=== PATIENT | female | born 1995 | race Caucasian/White ===

== ENCOUNTER 2020-04-27 11:10 | Emergency (ER) | payer OTHER, SELFPAY ==
--- NOTE | 2020-04-27 13:04 | RAD ---
CHEST 1 VIEW: Date: 04/27/2020 HISTORY: Cough. COMPARISON: 04/24/2013. FINDINGS: Heart size is normal. The lungs are clear. There is some linear artifact overlying the right chest ve rtically. IMPRESSION: No significant acute intrathoracic disease. No evidence for pneumonia. Stable from prior study. POS: RRE
[2020-04-28 14:24] LABS: SARS-CoV-2 MS2 Positive; SARS-CoV-2 N Gene Negative; SARS-CoV-2 S Gene Negative; SARS-CoV-2 by NAA Not Detected (NotDetected); SARS-CoV-2 orf1ab Negative
== END 2020-04-27 12:39 | disposition home or self-care (01) ==
LOC: MADERS 11:10
DX: J20.9 Acute bronchitis, unspecified (principal); B97.29 Other coronavirus as the cause of diseases classified elsewhere; F41.9 Anxiety disorder, unspecified; F31.9 Bipolar disorder, unspecified; F17.210 Nicotine dependence, cigarettes, uncomplicated; Z20.828 Contact with and (suspected) exposure to other viral communicable diseases
CPT/HCPCS: 71045; 87635; U0003

== ENCOUNTER 2020-12-11 07:24 | Emergency (ER) | payer SELFPAY ==
[2020-12-11] MEDS ORDERED: Sodium Chloride 0.9% 1,000 ML ONE (07:48)
[2020-12-11 07:59] LABS: #Basophils 0.1 thou/uL (0.0-0.2); #Lymphocytes 1.2 thou/uL (1.20-3.40); #Monocytes 0.8 thou/uL (0.11-0.59); #Neutrophils 8.4 thou/uL (1.40-6.50); %Basophils 0.7 % (0.0-1.0); %Eosinophils 0.4 % (0.0-10.0); %Lymphocytes 11.2 % (21.0-51.0); %Monocytes 7.6 % (0.0-10.0); Hemoglobin 14.9 g/dL (12.0-16.0); Mean Corpuscular HGB CONC 33.9 g/dL (32.0-36.0); Mean Corpuscular Hemoglobin 29.3 pg (27.0-31.0); Mean Corpuscular Volume 86.2 fL (78.0-98.0); Mean Platelet Volume 7.1 fL (7.4-10.4); Platelet Count 222 thou/uL (130-400); RBC Distribution Width 10.9 % (11.5-14.5); Red Blood Cell (RBC) Count 5.11 mill/uL (4.20-5.40); White Blood Cell (WBC) Count 10.5 thou/uL (4.8-10.8)
[2020-12-11 08:11] LABS: ALT (SGPT) 12 U/L (8-55); AST (SGOT) 16 U/L (5-34); Albumin 4.5 g/dL (3.5-5.0); Alkaline Phosphatase 63 U/L (40-110); Anion Gap 12 mmol/L (10-20); BUN (Urea Nitrogen) 12 mg/dL (7.0-18.7); Bilirubin, Total 0.9 mg/dL (0.2-1.2); Calc. Creatinine Clearance 0 mL/min (70-130); Calcium 8.9 mg/dL (7.8-10.44); Carbon Dioxide 27 mmol/L (22-29); Chloride 105 mmol/L (98-107); Globulin 2.8 g/dL (2.4-3.5); Glucose 92 mg/dL (70-105); Potassium 3.6 mmol/L (3.5-5.1); Protein, Total 7.3 g/dL (6.0-8.3); Sodium 140 mmol/L (136-145)
[2020-12-11 08:32] LABS: BHCG - Serum Negative (NEGATIVE); Pregs Control Background? CLEAR/WHITE (CLR/WHITE); Pregs Control Bar Appear? YES (CONTROL BAR)
[2020-12-11 09:01] LABS: Bilirubin Negative (Negative); Blood, Urine Negative (Negative); Clarity Clear (Clear); Glucose, Urine (Dipstick) Negative (Negative); Ketone, Urine Negative (Negative); Leukocyte Small (Negative); Nitrite Negative (Negative); Protein, Urine (Dipstick) Negative (Neg-Trace); RBC/HPF 0-3 HPF (0-3); Urobilinogen 0.2 mg/dL (Less than 2)
[2020-12-11 09:03] LABS: Bacteria/HPF Rare-Few HPF (None Seen)
== END 2020-12-11 09:35 | disposition home or self-care (01) ==
LOC: MADERS 07:24
DX: R55 Syncope and collapse (principal); N39.0 Urinary tract infection, site not specified; E16.2 Hypoglycemia, unspecified; F17.210 Nicotine dependence, cigarettes, uncomplicated; Z79.899 Other long term (current) drug therapy
CPT/HCPCS: 71046; 80053; 81003; 81015; 84703; 85025; 87086; 93005; J7050

== ENCOUNTER 2021-05-30 09:08 | Emergency (ER) | payer OTHER, SELFPAY ==
[2021-05-31 02:13] LABS: SARS-CoV-2 PCR by NAA Not Detected (NotDetected)
== END 2021-05-30 10:11 | disposition home or self-care (01) ==
LOC: MADERS 09:08
DX: O99.511 Diseases of the respiratory system complicating pregnancy, first trimester (principal); J02.9 Acute pharyngitis, unspecified; O99.331 Smoking (tobacco) complicating pregnancy, first trimester; F17.210 Nicotine dependence, cigarettes, uncomplicated; Z3A.10 10 weeks gestation of pregnancy
CPT/HCPCS: 99283; U0003; U0005

== ENCOUNTER 2021-06-05 08:08 | Emergency (ER) | payer OTHER | END 2021-06-05 09:15 | disposition home or self-care (01) | LOC: MADERS 08:08 | DX: O99.511 Diseases of the respiratory system complicating pregnancy, first trimester (principal); J02.9 Acute pharyngitis, unspecified; O99.331 Smoking (tobacco) complicating pregnancy, first trimester; F17.210 Nicotine dependence, cigarettes, uncomplicated | CPT/HCPCS: 87081; 87430; 99283 ==

== ENCOUNTER 2022-07-26 08:16 | Emergency (ER) | payer OTHER ==
[2022-07-26] MEDS ORDERED: Metoclopramide HCl 10 MG/2 ML VIAL ONE (09:13)
[2022-07-26] MEDS ORDERED: Sodium Chloride 0.9% 2,000 ML ONE (09:13)
[2022-07-26 09:24] LABS: #Lymphocytes 0.4 thou/uL (1.20-3.40); #Monocytes 0.4 thou/uL (0.11-0.59); #Neutrophils 11.6 thou/uL (1.40-6.50); %Basophils 0.1 % (0.0-1.0); %Eosinophils 0.1 % (0.0-10.0); %Lymphocytes 3.5 % (21.0-51.0); %Monocytes 3.3 % (0.0-10.0); %Neutrophils 92.9 % (42.0-75.0); Hemoglobin 14.8 g/dL (12.0-16.0); Mean Corpuscular HGB CONC 33.8 g/dL (32.0-36.0); Mean Corpuscular Hemoglobin 29.6 pg (27.0-31.0); Mean Corpuscular Volume 87.5 fl (78.0-98.0); Mean Platelet Volume 7.9 fL (7.4-10.4); Platelet Count 211 thou/uL (130-400); RBC Distribution Width 10.8 % (11.5-14.5); White Blood Cell (WBC) Count 12.5 thou/uL (4.8-10.8)
[2022-07-26 09:26] LABS: Bilirubin Negative (Negative); Blood, Urine Negative (Negative); Clarity Clear (Clear); Glucose, Urine (Dipstick) Negative (Negative); Ketone, Urine Negative (Negative); Leukocyte Trace (Negative); Nitrite Negative (Negative); Protein, Urine (Dipstick) Negative (Neg-Trace); Urobilinogen 0.2 mg/dL (Less than 2); pH, Urine 5.5 (5.0-9.0)
[2022-07-26 09:34] LABS: BHCG - Serum Negative (NEGATIVE); Pregs Control Background? CLEAR/WHITE (CLR/WHITE); Pregs Control Bar Appear? YES (CONTROL BAR)
[2022-07-26 09:42] LABS: Bacteria/HPF 2+ HPF (None Seen); RBC/HPF 0-3 HPF (0-3); Specific Gravity, Urine 1.032 (1.002-1.036)
[2022-07-26 09:43] LABS: ALT (SGPT) 7 U/L (8-55); AST (SGOT) 12 U/L (5-34); Albumin 3.9 g/dL (3.5-5.0); Alkaline Phosphatase 45 U/L (40-110); Anion Gap 15 mmol/L (10-20); BUN (Urea Nitrogen) 15 mg/dL (7.0-18.7); Bilirubin, Total 0.6 mg/dL (0.2-1.2); Calc. Creatinine Clearance 0 mL/min (70-130); Calcium 8.1 mg/dL (7.8-10.44); Carbon Dioxide 20 mmol/L (22-29); Chloride 106 mmol/L (98-107); Estimated GFR 116; Globulin 2.9 g/dL (2.4-3.5); Glucose 109 mg/dL (70-105); Potassium 3.7 mmol/L (3.5-5.1); Protein, Total 6.8 g/dL (6.0-8.3); Sodium 137 mmol/L (136-145)
[2022-07-26] MEDS ORDERED: Acetaminophen 325 MG TAB ONE (09:45)
[2022-07-26] MEDS ORDERED: Sodium Chloride 0.9% 100 ML ONE (10:08)
[2022-07-26] MEDS ORDERED: cefTRIAXone\\ROCEPHIN 2 GM VIAL ONE (10:08)
== END 2022-07-26 11:18 | disposition home or self-care (01) ==
LOC: MADERS 08:16
DX: N30.00 Acute cystitis without hematuria (principal)
CPT/HCPCS: 80053; 81003; 81015; 83605; 84703; 85025; 87086; 96365; 96368; J0696; J2765; J3490; J7050

== ENCOUNTER 2024-02-25 17:53 | Emergency (ER) | payer OTHER | END 2024-02-25 18:38 | disposition home or self-care (01) | LOC: MADERS 17:53 | DX: T78.40XA Allergy, unspecified, initial encounter (principal) | CPT/HCPCS: 99282 ==

== ENCOUNTER 2024-03-07 15:08 | Emergency (ER) | payer OTHER ==
[2024-03-07] MEDS ORDERED: Ketorolac Tromethamine 30 MG (1 mL) VIAL ONE (15:39)
[2024-03-07] MEDS ORDERED: Prochlorperazine 10 MG/2 ML VIAL ONE (15:39)
[2024-03-07] MEDS ORDERED: diphenhydrAMINE 50 MG/ML VIAL ONE (15:39)
[2024-03-07 16:31] LABS: Influenza A by NAA Not Detected (NotDetected); Influenza B by NAA Not Detected (NotDetected); SARS-CoV-2 NAA Rapid Test Not Detected (NotDetected)
== END 2024-03-07 16:36 | disposition home or self-care (01) ==
LOC: MADERS 15:08
DX: G43.909 Migraine, unspecified, not intractable, without status migrainosus (principal); B34.9 Viral infection, unspecified
CPT/HCPCS: 87081; 87430; 96372; 99283; J0780; J1200; J1885

== ENCOUNTER 2024-06-21 21:54 | Emergency (ER) | payer OTHER ==
[2024-06-21] MEDS ORDERED: Ibuprofen 800 MG TAB ONE (23:30)
== END 2024-06-21 23:59 | disposition home or self-care (01) ==
LOC: MADERS 21:54
DX: M79.645 Pain in left finger(s) (principal)
CPT/HCPCS: 99283

== ENCOUNTER 2024-07-01 13:17 | Outpatient (CLI) | payer OTHER | END 2024-07-01 13:18 | disposition home or self-care (01) | LOC: MADLAB 13:17 | PROVIDERS: ATTEND Nurse Practitioner Family | DX: M79.675 Pain in left toe(s) (principal) ==

== ENCOUNTER 2024-07-29 15:37 | Emergency (ER) | payer OTHER | END 2024-07-29 16:40 | disposition home or self-care (01) | LOC: MADERS 15:37 | DX: J02.9 Acute pharyngitis, unspecified (principal) | CPT/HCPCS: 87081; 87430; 99283 ==

== ENCOUNTER 2024-11-15 13:18 | Emergency (ER) | payer OTHER ==
[2024-11-15] MEDS ORDERED: Amoxicillin/Potassium Clav 875 MG TAB ONE (13:40)
[2024-11-15] MEDS ORDERED: HYDROcodone/Acetaminophen 10/325 mg Tablet ONE (13:40)
== END 2024-11-15 13:48 | disposition home or self-care (01) ==
LOC: MADERS 13:18
DX: K08.89 Other specified disorders of teeth and supporting structures (principal)
CPT/HCPCS: 99282

== ENCOUNTER 2025-05-10 13:22 | Emergency (ER) | payer OTHER ==
[2025-05-10] MEDS ORDERED: Orphenadrine Citrate 60 MG/2 ML VIAL ONE (13:49)
[2025-05-10 14:22] LABS: Glucose, Urine (Dipstick) Negative (Negative); Leukocyte Trace (Negative); Protein, Urine (Dipstick) Trace mg/dL (Neg-Trace); Specific Gravity, Urine 1.020 (1.005-1.030)
[2025-05-10 14:30] LABS: Bacteria/HPF 2+ HPF (None Seen); CAUTI Indications for Culture Dysuria,urgency,freq; WBC/HPF 0-3 HPF (0-3)
[2025-05-10 14:31] LABS: Urine Culture Reflex No No
[2025-05-10 14:33] LABS: Pregnancy Test - Urine (BHCG) Negative (Negative); Pregu Control Background? CLEAR/WHITE (CLR/WHITE); Pregu Control Bar Appear? YES (CONTROL BAR)
== END 2025-05-10 14:47 | disposition home or self-care (01) ==
LOC: MADERS 13:22
DX: M54.6 Pain in thoracic spine (principal); N39.0 Urinary tract infection, site not specified; M79.7 Fibromyalgia; Z79.899 Other long term (current) drug therapy
CPT/HCPCS: 72072; 81001; 81025; 96372; 99283; J2360